=== PATIENT | female | born 1965 | race African-American/Black ===

== ENCOUNTER 2023-03-21 16:26 | Emergency (ER) | payer MEDICAID, OTHER ==
[~2023-03-21] VITALS: Ht 165.1 cm; Wt 93.7 kg
[2023-03-21] MEDS ORDERED: PRED20TA2 PO (19:53)
[2023-03-21] MEDS ORDERED: DIPH-491 PO (19:53)
[2023-03-21] MEDS ORDERED: diphenhdrAMINE HCL 50 MG/1 ML VL IM ONE (20:00)
[2023-03-21] MEDS ORDERED: DexAMETHasone SOD PHOS 10MG/1ML VIAL INJ IM ONE (20:00)
[2023-03-21 21:08] VITALS: BP 137/84; PULSE 67; RESP 16; TEMP 98; O2SAT 98
== END 2023-03-21 21:14 | disposition home or self-care (01) ==
LOC: ER 16:26
DX: T78.40XA Allergy, unspecified, initial encounter (principal); E11.9 Type 2 diabetes mellitus without complications; I10 Essential (primary) hypertension; E78.5 Hyperlipidemia, unspecified; Z91.018 Allergy to other foods; Z88.8 Allergy status to other drugs, medicaments and biological substances; Z98.890 Other specified postprocedural states; Z90.710 Acquired absence of both cervix and uterus; X58.XXXA Exposure to other specified factors, initial encounter
CPT/HCPCS: 96372; 99284; J1100; J1200